=== PATIENT | male | born 1985 | race Caucasian/White ===

== ENCOUNTER 2017-01-25 00:54 | Emergency (ER) | payer SELFPAY ==
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
[2017-01-25] MEDS ORDERED: TETRACAINE HCL 150 DROP BTL RIGHTEYE ONE (01:16)
[2017-01-25] MEDS ORDERED: TETRACAINE HCL 150 DROP BTL ONE (01:16)
[2017-01-25] MEDS ORDERED: CIPROFLOXACIN HCL 50 DROP BTL RIGHTEYE SCH (01:45)
[2017-01-25] MEDS ORDERED: CIPROFLOXACIN HCL 50 DROP BTL ONE (01:46)
[2017-01-25 02:31] VITALS: BP 139/71
== END 2017-01-25 02:30 | disposition home or self-care (01) ==
LOC: ER 00:54
DX: S05.01XA Injury of conjunctiva and corneal abrasion without foreign body, right eye, initial encounter (principal); H01.002 Unspecified blepharitis right lower eyelid; X58.XXXA Exposure to other specified factors, initial encounter; Y93.89 Activity, other specified; Y92.9 Unspecified place or not applicable; F17.200 Nicotine dependence, unspecified, uncomplicated